=== PATIENT | female | born 1945 | race Two or more races ===

== ENCOUNTER → 2019-07-13 | Outpatient (CLI) | payer OTHER | END | disposition home or self-care (01) | LOC: NUCLEAR 07-09 09:00 | DX: I11.9 Hypertensive heart disease without heart failure (principal); R06.02 Shortness of breath; E66.8 Other obesity; R06.09 Other forms of dyspnea; R07.89 Other chest pain; C18.8 Malignant neoplasm of overlapping sites of colon ==